=== PATIENT | female | born 1950 | race Hispanic/Latino ===

== ENCOUNTER → 2019-04-25 | Outpatient (CLI) | payer OTHER, MEDICARE ==
[~2019-04-25] MED LIST: ALBU8.5H8 IH; C,E,1CAP PO; CEFD300C3 PO; CETI-101 PO; FLUT16H NASAL; FLUT1AER IH; GINK120C PO; LACT1CAP93 PO; LEVO125T4 PO; METF-444 PO; METO-408 PO; OMEP40CA13 PO; PRED20TA3 PO; UBID100C10 PO
== END | disposition home or self-care (01) ==
LOC: OIH 16:08
PROVIDERS: ATTEND Internal Medicine
DX: J40 Bronchitis, not specified as acute or chronic (principal)
CPT/HCPCS: 71046

== ENCOUNTER → 2019-07-28 | Outpatient (CLI) | payer OTHER, MEDICARE ==
[~2019-07-28] MED LIST changes: -CETI-101 PO; +CETI-109 PO
== END | disposition home or self-care (01) ==
LOC: OIH 16:09
PROVIDERS: ATTEND Internal Medicine
DX: M47.22 Other spondylosis with radiculopathy, cervical region (principal); M25.78 Osteophyte, vertebrae; M19.012 Primary osteoarthritis, left shoulder
CPT/HCPCS: 72040; 73030

== ENCOUNTER 2020-03-26 18:30 | Emergency (ER) | payer OTHER, MEDICARE ==
[~2020-03-26 18:30] MED LIST changes: -CETI-109 PO; +CETI-89 PO
[2020-03-26 19:40] LABS: CREATININE 0.9 mg/dL (0.5-1.5); POTASSIUM 4.1 mmol/L (3.5-5.1)
[2020-03-26 19:44] LABS: ALBUMIN 4.1 g/dL (3.5-5.0); BILIRUBIN,TOTAL 0.2 mg/dL (0.2-1.0); TOTAL PROTEIN, SERUM 7.7 g/dL (6.0-8.3)
[2020-03-26 19:49] LABS: BASOPHILS % (AUTO) 0.9 % (0.0-5.0); EOSINOPHILS % (AUTO) 1.5 % (0.0-8.0); HEMATOCRIT 39.1 % (36-48); LYMPHOCYTES % (AUTO) 29.5 % (21.0-51.0); MEAN CORPUSCULAR HEMOGLOBIN 30.4 pg (27.0-33.0); MEAN CORPUSCULAR HGB CONC 34.5 g/dL (32.0-36.0); MEAN CORPUSCULAR VOLUME 88.1 fL (79-99); MONOCYTES % (AUTO) 8.8 % (3.0-13.0); NEUTROPHILS % (AUTO) 59.2 % (40.0-77.0); PLATELET COUNT (AUTO) 264 K/uL (130-400); RED BLOOD CELL COUNT(AUTO) 4.44 MIL/uL (4.00-5.50); RED CELL DISTRIBUTION WIDTH 12.5 % (11.0-15.5); WHITE BLOOD COUNT (AUTO) 8.1 K/uL (4.8-10.8)
[2020-03-26] MEDS ORDERED: ACETAMINOPHEN EXTRA STRENGTH 500 MG TABLET ONE (20:49)
[2020-03-26 21:01] LABS: ERYTHROCYTE SEDIMENTATION RATE 9 MM/HR (0-30)
[2020-03-26] MEDS ORDERED: METOCLOPRAMIDE 10 MG/2 ML VIAL ONE (21:32)
[2020-03-26] MEDS ORDERED: DiphenhydrAMINE HCL 50 MG/ML VIAL ONE (21:33)
[2020-03-26] MEDS ORDERED: KETOROLAC TROMETHAMINE 30MG/ML ONE (21:33)
== END 2020-03-26 23:52 | disposition home or self-care (01) ==
LOC: EDH 18:30
DX: R51 Headache (principal); I10 Essential (primary) hypertension; E03.9 Hypothyroidism, unspecified; E11.9 Type 2 diabetes mellitus without complications; Z90.49 Acquired absence of other specified parts of digestive tract; Z88.2 Allergy status to sulfonamides; Z88.6 Allergy status to analgesic agent
CPT/HCPCS: 36415; 70450; 80053; 85025; 85651; 96372 ×3; 99285; J1200; J1885; J2765